=== PATIENT | female | born 1975 | race Hispanic/Latino ===

== ENCOUNTER → 2024-07-16 | Outpatient (CLI) | payer MEDICAID, SELFPAY ==
[2024-07-16 12:19] LABS: Absolute Lymphocyte Count 2.72 X10^3/uL (0.83-4.51); Absolute Neutrophil Count 7.5 X10^3/uL (2.0-7.7); Basophil# 0.08 X10^3/uL; Basophil% 0.7 % (0-1); Eosinophils% 3.6 % (0-5); Hematocrit 39.1 % (37-47); Hemoglobin 13.2 g/dL (12.0-15.0); Lymphocyte # 2.72 X10^3/ul (0.83-4.51); Lymphocyte % 24.2 % (19-41); Mean Corp Hgb Conc 33.8 g/dL (32-36); Mean Corpuscular Hgb 30.6 pg (27.0-32.0); Mean Corpuscular Volume 90.7 fL (81-99); Mean Platelet Vol. 10.7 fl (6.2-12.0); Monocyte# 0.48 X10^3/uL; Monocyte% 4.3 % (0-10); NRBC Flagged by Analyzer 0 % (0-5); Neutrophil # 7.51 X10^3/uL (2.7-7.7); Neutrophil % 66.8 % (47-70); Platelet Count 360 K/mm3 (150-450); RBC Distribution Width CV 14.1 % (11.6-14.6); RBC Distribution Width SD 45.4 fl (35.1-43.9); Red Blood Count 4.31 M/mm3 (4.2-5.4); White Blood Count 11.2 K/mm3 (4.4-11.0)
[2024-07-16 12:52] LABS: ALB/GLOB Ratio 0.8 RATIO (0.9-2.4); AST(SGOT) 16 U/L (15-37); Alanine Aminotransfer ALT/SGPT 26 U/L (13-56); Albumin, Serum 3.3 g/dL (3.2-5.0); Alkaline Phosphatase 114 U/L (45-117); Anion Gap 6 (5-15); BUN 7 mg/dL (7-18); BUN/Creat Ratio 9.7 RATIO (10-20); Calcium,Total 8.4 mg/dL (8.5-10.1); Chloride 105 mmol/L (98-107); Cholesterol 147 mg/dL (200); Creatinine, Serum 0.72 mg/dL (0.55-1.02); EST Glomerular Filtration Rate 91 mL/min (>60); Est Glom Filt Rate - Afr Amer 111 mL/min (>60); Globulin 3.9 g/dL (2.2-4.2); Glucose 122 mg/dL (74-106); High Density Lipoprotein 49 mg/dL; Potassium 3.6 mmol/L (3.5-5.1); Protein, Total 7.2 g/dL (6.4-8.2); Sodium Level 139 mmol/L (136-145); Triglycerides 132 mg/dL; Very Low Density Lipoprotein 26 mg/dL (5-40)
[2024-07-17 10:25] LABS: Hemoglobin A1c 6.2 % (3.8-5.6)
== END | disposition home or self-care (01) ==
LOC: BIMLAB 10:09
PROVIDERS: PCP Internal Medicine; Referring Provider Internal Medicine; Visit Provider Internal Medicine
DX: Z00.00 Encounter for general adult medical examination without abnormal findings (principal); E83.51 Hypocalcemia; R73.9 Hyperglycemia, unspecified
CPT/HCPCS: 36415; 80053; 80061; 82306; 83036; 85025

== ENCOUNTER → 2024-07-29 | Outpatient (CLI) | payer MEDICAID, SELFPAY ==
--- NOTE | 2024-07-29 08:18 | BI_ITS ---
MAMMOGRAPHY - BILATERAL SCREENING REASON FOR EXAM: Female, 48 years old. Routine annual screening examination. PERTINENT HISTORY: Non-contributory. TECHNIQUE: Digital bilateral breast francisco (3D mammographic acquisition) in the CC and MLO projections. 2-D mediolateral oblique (MLO) and craniocaudad (CC) views of both breasts were obtained. CAD: Full Field Digital Mammography with Computer Added Detection was performed. COMPARISON: Comparison is made with prior study dated December 27, 2015. FINDINGS: Breast Composition: The breasts are almost entirely fatty. There are no dominant masses or suspicious calcifications. Stable bilateral benign-appearing axillary lymph nodes. No other significant abnormalities are identified. There has been no significant change since the prior study. BI/SCRN MAMM (CAD)W/FRANCISCO BILAT IMPRESSION: Stable bilateral screening mammogram. Yearly follow-up mammogram recommended. (A) ASSESSMENT CATEGORY: BIRADS Category 2: Benign. A letter regarding these results will be sent to the patient by the facility within 30 days. Approximately 10% of breast cancers are not detected by mammography. A normal mammogram should not delay biopsy of a clinically suspicious abnormality. [id number] Electronically Signed: Bill Vasquez MD at 11:44 EDT ,
--- OUTSIDE RECORDS SUMMARY | 2024-07-29 08:47 | XMS RPT_ITS | CCD ---
Author Organization [facility] Team Providers Care Dental Aide Name Role Phone BROOKS YANG DO Primary Care Physician [phone] MEGHAN PHAM MD Attending Unavailable BROOKS YANG DO Primary Care Unavailable BROOKS YANG DO Attending Unavailable BROOKS YANG DO Primary Care Unavailable MOUNIKA MARISCAL Attending UnavailBROOKS Carvajal DO Primary Care Unavailable BROOKS YANG DO Attending Unavailable BROOKS YANG DO Primary Care Unavailable Medications Current Medications Medication Drug Class(es) Dates Sig (Normalized) Sig (Original) cephalexin 500 mg oral capsule (1 source) Cephalosporin Antibacterial Start: 09-18-2022 End: 09-25-2022 cephalexin 500 mg oral capsule Dose : 500 mg = 1 cap(s), Oral, QID, X 7 day(s), # 28 cap(s), 0 Refill(s), 09/25/22 10:14:00 EST, Pharmacy: [facility], Cellulitis, 158, cm, 09/18/22 9:51:00 EST, Height, 115.4 Start Date: 09/18/22 Stop Date: 09/25/22 Status: Ordered predniSONE 10 mg oral tablet (1 source) Start: 02-27-2023 take 4 tablets by mouth once daily, then take 3 tablets by mouth once daily, then take 2 tablets by mouth once daily, then take 1 tablet by mouth once daily predniSONE 10 mg oral tablet See Instructions, Take 4 tabs p.o. daily x 3 days, then 3 tabs p.o. daily x 3 days, then 2 tabs p.o. daily x 3 days, then 1 tab p.o. daily x 3 days, # 30 tab(s), 0 Refill(s), Pharmacy: [facility], Lumbar back pain with radiculopathy affecti... Start Date: 02/27/23 Status: Ordered sulfamethoxazole 800 mg / trimethoprim 160 mg oral tablet (1 source) Dihydrofolate Reductase Inhibitor Antibacterial, Sulfonamide Antimicrobial Start: 09-20-2022 End: 09-27-2022 take 1 tablet by mouth twice daily Bactrim DS 800 mg-160 mg oral tablet Dose = 1 tab(s), Oral, BID, X 7 day(s), # 14 tab(s), 0 Refill(s), Pharmacy: [facility], 158, cm, 09/18/22 9:51:00 EST, Height, 115.4 Start Date: 09/20/22 Stop Date: 09/27/22 Status: Ordered 24 hr tolterodine tartrate 4 mg extended release oral capsule (3 sources) Cholinergic Muscarinic Antagonist Start: 08-23-2022 Detrol LA 4 mg oral capsule, extended release Dose : 4 mg = 1 cap(s), Oral, qDay, # 30 cap(s), 5 Refill(s), Pharmacy: [facility], Mixed stress and urge urinary incontinence, 159, cm, 08/23/22 9:07:00 EST, Height Start Date: 08/23/22 Status: Ordered Problems Problem Classification Problem Date Documented Da te Episodic/Chronic Diabetes mellitus without complication (5 sources) Prediabetes; Translations: [Prediabetes] 03-30-2020 Episodic Other inflammatory condition of skin (4 sources) Psoriasis 03-30-2020 Chronic Other nervous system disorders (4 sources) Paresthesia of finger 07-26-2022 Episodic Other nutritional; endocrine; and metabolic disorders (4 sources) Body mass index 40+ - severely obese 01-25-2022 Chronic Other nutritional; endocrine; and metabolic disorders (1 source) Morbid obesity; Translations: [Morbid (severe) obesity due to excess calories] Chronic Other skin disorders (4 sources) 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 Skin and subcutaneous tissue infections (1 source) Furuncle of groin 12-07-2022 Episodic Spondylosis; intervertebral disc disorders; other back problems (1 source) Low back pain 02-27-2023 Episodic Substance-related disorders (4 sources) Tobacco dependence caused by cigarettes 03-30-2021 Chronic Unclassified (4 sources) Patient encounter status 07-26-2022 Results Test Name Value Interpretation Reference Range Facility XR SPINE LUMBAR W/OBLIQUES 4 VIEWSon 03-03-2023 XR SPINE LUMBAR W/OBLIQUES 4 VIEWS ORIGINAL EXAMINATION: 5 XRAY VIEWS OF THE LUMBAR SPINE02/27/2023 11:46 am LUMBAR SPINE W/ OBLIQUES COMPARISON: None HISTORY: ORDERING SYSTEM PROVIDED HISTORY: Reason for Exam: Low back pain with radiation to both lower extremities; no history of trauma FINDINGS: There are likely rudimentary ribs at T12. Chronic corticated defects seen in the left transverse rudimentary ribs. No pars defects visible. Lumbar vertebral body heights are normal. Mild marginal disc osteophytes seen in the lumbar spine. There is mild loss of disc height at L3-4 and L4-5. Facet arthropathy is most prevalent in the lower lumbar spine. Surgical clips noted in the right upper quadrant and there salpingostomy clips in the pelvis. IMPRESSION: Mild degenerative changes. No compression deformities Interpreted by: Juan Cárdenas MD Preliminary Report By: Juan Cárdenas MD Electronically signed By Juan Cárdenas MD Dictated Date: 03/03/2023 8:23:52 AM Prelim Date: 03/03/2023 8:26:39 AM Sign Date: 03/03/2023 8:26:39 AM Ordering Provider: BROOKS Mendoza [facility] ([place]) .Auto Diffon 08-23-2022 Basophil, Absolute 0.1 10 3/mcL Normal 0.0-0.2 [facility]) Comment on above: Performed By: #### A 1C, TSH, GFR, CMP, LIPID #### [address] [address] Basophils/100 WBC (Bld) 0.8 % Normal 0.0-2.5 [facility] ([place]) Comment on above: Performed By: #### A 1C, TSH, GFR, CMP, LIPID #### [address] [address] Eosinophil, Absolute 0.3 10 3/mcL Normal 0.0-0.4 [facility] ([place]) Comment on above: Performed By: #### A 1C, TSH, GFR, CMP, LIPID #### Jeb [address] [address] Eosinophils/100 WBC (Bld) 2.7 % Normal 0.0-7.0 [facility] ([place]) Comment on above: Performed By: #### A 1C, TSH, GFR, CMP, LIPID #### [address] [address] Lymphocyte, Absolute 2.4 10 3/mcL Normal 0.8-3.9 [facility] ([place]) Comment on above: Performed By: #### A 1C, TSH, GFR, CMP, LIPID #### [address] [address] Lymphocytes/100 WBC (Bld) 19.4 % Normal 10.0-50.0 [facility] ([place]) Comment on above: Performed By: #### A 1C, TSH, GFR, CMP, LIPID #### [address] [address] Monocyte, Absolute 0.5 10 3/mcL Normal 0.2-1.0 [facility] ([place]) Comment on above: Performed By: #### A 1C, TSH, GFR, CMP, LIPID #### [address] [address] Monocytes/100 WBC (Bld) 4.4 % Normal 1.7-13.0 [facility] ([place]) Comment on above: Performed By: #### A 1C, TSH, GFR, CMP, LIPID #### [address] [address] Neutrophils/100 WBC (Bld) 72.7 % Normal 37.0-80.0 [facility] ([place]) Comment on above: Performed By: #### A 1C, TSH, GFR, CMP, LIPID #### [address] [address] .GFRon 08-23-2022 GFR 102 ml/min/1.73sqm Normal [facility] ([place]) Comment on above: Result Comment: GFR Population mean for , Non- Americans Ages 20-29 = 116 mL/min/1.73 sq.m. Ages 30-39 = 107 mL/min/1.73 sq.m. Ages 40-49 = 99 mL/min/1.73 sq.m. Ages 50-59 = 93 mL/min/1.73 sq.m. Ages 60-69 = 85 mL/min/1.73 sq.m. Ages 70+ = 75 mL/min/1.73 sq.m. Chronic Kidney Disease: Less than 60 mL/min/1.73 square meters End Stage Renal Disease: Less than 15 mL/min/1.73 square meters Performed By: #### A 1C, TSH, GFR, CMP, LIPID #### [address] [address] GFR Non- 84 ml/min/1.73sqm Normal [facility] ([place]) Comment on above: Result Comment: GFR Population mean for , Non- Americans Ages 20-29 = 116 mL/min/1.73 sq.m. Ages 30-39 = 107 mL/min/1.73 sq.m. Ages 40-49 = 99 mL/min/1.73 sq.m. Ages 50-59 = 93 mL/min/1.73 sq.m. Ages 60-69 = 85 mL/min/1.73 sq.m. Ages 70+ = 75 mL/min/1.73 sq.m. Chronic Kidney Disease: Less than 60 mL/min/1.73 square meters End Stage Renal Disease: Less than 15 mL/min/1.73 square meters Performed By: #### A 1C, TSH, GFR, CMP, LIPID #### [address] [address] .NEUABSon 08-23-2022 Neutrophil, Absolute 9.0 10 3/mcL High 2.9-6.2 [facility] ([place]) Comment on above: Performed By: #### A 1C, TSH, GFR, CMP, LIPID #### [address] [address] A1Con 08-23-2022 HbA1c (Bld) [Mass fraction] 6.2 % Normal 4.3-6.4 [facility] ([place]) Comment on above: Performed By: #### F SH, LH #### [address], [place] [address] [facility] Erythrocyte distribution width (RBC) [Ratio] 14.7 % High 11.5-14.5 [facility] ([place]) Comment on above: Performed By: #### A 1C, TSH, GFR, CMP, LIPID #### [address] [address] Hematocrit (Bld) [Volume fraction] 40.0 % Normal 37.0-47.0 [facility] ([place]) Comment on above: Performed By: #### A 1C, TSH, GFR, CMP, LIPID #### [address] [address] Hgb 13.5 G/dL Normal 12.0-16.0 [facility] ([place]) Comment on above: Performed By: #### A 1C, TSH, GFR, CMP, LIPID #### [address] [address] MCH (RBC) [Entitic mass] 29.4 pg Normal 27.0-31.2 [facility] ([place]) Comment on above: Performed By: #### A 1C, TSH, GFR, CMP, LIPID #### [address] [address] MCHC 33.8 G/dL Normal 33.0-37.0 [facility] ([place]) Comment on above: Performed By: #### A 1C, TSH, GFR, CMP, LIPID #### [address] [address] MCV (RBC) [Entitic vol] 87.1 fL Normal 80.0-94.0 [facility] ([place]) Comment on above: Performed By: #### A 1C, TSH, GFR, CMP, LIPID #### [address] [address] Platelet 361 10 3/mcL Normal 130-400 [facility] ([place]) Comment on above: Performed By: #### A 1C, TSH, GFR, CMP, LIPID #### [address] [address] Platelet mean volume (Bld) [Entitic vol] 8.3 fL Normal 7.4-10.4 [facility] ([place]) Comment on above: Performed By: #### A 1C, TSH, GFR, CMP, LIPID #### [address] [address] RBC 4.59 10 6/mcL Normal 4.20-5.40 [facility] ([place]) Comment on above: Performed By: #### A 1C, TSH, GFR, CMP, LIPID #### [address] [address] WBC 12.4 10 3/mcL High 4.6-10.8 [facility] ([place]) Comment on above: Performed By: #### A 1C, TSH, GFR, CMP, LIPID #### [address] [address] CMPon 08-23-2022 Albumin Level 3.5 G/dL Normal 3.5-5.0 [facility] ([place]) Comment on above: Performed By: #### A 1C, TSH, GFR, CMP, LIPID #### [address] [address] Albumin/Globulin [Mass ratio] 1.0 {ratio} Low 1.1-2.5 [facility] ([place]) Comment on above: Performed By: #### A 1C, TSH, GFR, CMP, LIPID #### [address] [address] ALP [Catalytic activity/Vol] 118 U/L Normal 40-135 [facility] ([place]) Comment on above: Performed By: #### A 1C, TSH, GFR, CMP, LIPID #### [address] [address] ALT [Catalytic activity/Vol] 26 U/L Normal 14-59 [facility] ([place]) Comment on above: Performed By: #### A 1C, TSH, GFR, CMP, LIPID #### [address] [address] AST [Catalytic activity/Vol] 16 U/L Normal 10-40 [facility] ([place]) Comment on above: Performed By: #### A 1C, TSH, GFR, CMP, LIPID #### [address] [address] Bili Total 0.5 mg/dL Normal 0.2-1.0 [facility] ([place]) Comment on above: Result Comment: Use of this assay is not recommended for patients undergoing treatment with eltrombopag due to the potential for falsely elevated results. Performed By: #### A 1C, TSH, GFR, CMP, LIPID #### [address] [address] BUN/Creatinine Ratio 12 ratio Normal 7-27 [facility] ([place]) Comment on above: Performed By: #### A 1C, TSH, GFR, CMP, LIPID #### [address] [address] Calcium [Mass/Vol] 8.8 mg/dL Normal 8.4-10.2 [facility] ([place]) Comment on above: Performed By: #### A 1C, TSH, GFR, CMP, LIPID #### [address] [address] Chloride [Moles/Vol] 103 mmol/L Normal 98-107 [facility] ([place]) Comment on above: Performed By: #### A 1C, TSH, GFR, CMP, LIPID #### [address] [address] CO2 [Moles/Vol] 30 mmol/L High 22-29 [facility] ([place]) Comment on above: Performed By: #### A 1C, TSH, GFR, CMP, LIPID #### [address] [address] Creatinine [Mass/Vol] 0.74 mg/dL Normal 0.55-1.02 [facility] ([place]) Comment on above: Performed By: #### A 1C, TSH, GFR, CMP, LIPID #### [address] [address] Electrolyte Balance 9.0 mEq/L Normal 4.0-15.0 [facility] ([place]) Comment on above: Performed By: #### A 1C, TSH, GFR, CMP, LIPID #### [address] [address] Globulin 3.6 G/dL Normal [facility] ([place]) Comment on above: Performed By: #### A 1C, TSH, GFR, CMP, LIPID #### [address] [address] Glucose [Mass/Vol] 138 mg/dL High 70-105 [facility] ([place]) Comment on above: Performed By: #### A 1C, TSH, GFR, CMP, LIPID #### [address] [address] Potassium [Moles/Vol] 3.5 mmol/L Normal 3.5-5.1 [facility] ([place]) Comment on above: Performed By: #### A 1C, TSH, GFR, CMP, LIPID #### [address] [address] Sodium [Moles/Vol] 142 mmol/L Normal 136-145 [facility] ([place]) Comment on above: Performed By: #### A 1C, TSH, GFR, CMP, LIPID #### [address] [address] Total Protein 7.1 G/dL Normal 6.4-8.2 [facility] ([place]) Comment on above: Performed By: #### A 1C, TSH, GFR, CMP, LIPID #### [address] [address] Urea nitrogen [Mass/Vol] 9 mg/dL Normal 7-18 [facility] ([place]) Comment on above: Performed By: #### A 1C, TSH, GFR, CMP, LIPID #### [address] [address] FSHon 08-23-2022 FSH 40.9 mIU/mL Normal [facility] ([place]) Comment on above: Result Comment: Adul t Female FSH Reference Ranges (08/24/99): Follicular phase 2.5 - 10.2 mIU/mL Midcycle phase 3.4 - 33.4 mIU/mL Luteal phase 1.5 - 9.1 mIU/mL Post menopausal 23.0 -116.3 mIU/mL Adult Male: 1.4 - 18.1 mIU/mL Performed By: #### F , #### [place] [address] LABORATORYOrdered By: SYSTEM SYSTEM on 08-23-2022 Follitropin Qn 40.9 m[IU]/mL Invalid Interpretation Code AH ADM SS Lutropin Qn 20.5 m[IU]/mL Invalid Interpretation Code AH ADM SS GFR 102 ml/min/1.73sqm Invalid Interpretation Code AO Chemistry S GFR Non- 84 ml/min/1.73sqm Invalid Interpretation Code AO Chemistry S LABORATORYOrdered By: Jordan Sandy on 08-23-2022 Albumin BCP dye [Mass/Vol] 3.5 G/dL Invalid Interpretation Code 3.5 - 5.0 G/dL AO ADM SS Albumin/Globulin [Mass ratio] 1.0 {ratio} Invalid Interpretation Code 1.1 - 2.5 ratio AO ADM SS ALP [Catalytic activity/Vol] 118 U/L Invalid Interpretation Code 40 - 135 U/L AO ADM SS ALT With P-5'-P [Catalytic activity/Vol] 26 U/L Invalid Interpretation Code 14 - 59 U/L AO ADM SS AST With P-5'-P [Catalytic activity/Vol] 16 U/L Invalid Interpretation Code 10 - 40 U/L AO ADM SS Bilirubin [Mass/Vol] 0.5 mg/dL Invalid Interpretation Code 0.2 - 1.0 mg/dL AO ADM SS Calcium [Mass/Vol] 8.8 mg/dL Invalid Interpretation Code 8.4 - 10.2 mg/dL AO ADM SS Chloride [Moles/Vol] 103 mmol/L Invalid Interpretation Code 98 - 107 mmol/L AO ADM SS Cholesterol [Mass/Vol] 187 mg/dL Invalid Interpretation Code 0 - 200 mg/dL AO ADM SS Cholesterol in HDL [Mass/Vol] 48 mg/dL Invalid Interpretation Code 40 - 60 mg/dL AO ADM SS Cholesterol in LDL [Mass/Vol] 106 mg/dL Invalid Interpretation Code 0 - 130 mg/dL AO ADM SS CO2 [Moles/Vol] 30 mmol/L Invalid Interpretation Code 22 - 29 mmol/L AO ADM SS Creatinine [Mass/Vol] 0.74 mg/dL Invalid Interpretation Code 0.55 - 1.02 mg/dL AO ADM SS Electrolyte Balance 9.0 mEq/L Invalid Interpretation Code 4.0 - 15.0 mEq/L AO ADM SS Globulin 3.6 G/dL Invalid Interpretation Code AO ADM SS Glucose [Mass/Vol] 138 mg/dL Invalid Interpretation Code 70 - 105 mg/dL AO ADM SS Potassium [Moles/Vol] 3.5 mmol/L Invalid Interpretation Code 3.5 - 5.1 mmol/L AO ADM SS Protein [Mass/Vol] 7.1 G/dL Invalid Interpretation Code 6.4 - 8.2 G/dL AO ADM SS Sodium [Moles/Vol] 142 mmol/L Invalid Interpretation Code 136 - 145 mmol/L AO ADM SS Triglyceride [Mass/Vol] 167 mg/dL Invalid Interpretation Code 0 - 150 mg/dL AO ADM SS TSH Qn 1.98 m[IU]/L Invalid Interpretation Code 0.36 - 3.74 mcIU/mL AO ADM SS Urea nitrogen [Mass/Vol] 9 mg/dL Invalid Interpretation Code 7 - 18 mg/dL AO ADM SS Urea nitrogen/Creatinine [Mass ratio] 12 ratio Invalid Interpretation Code 7 - 27 ratio AO ADM SS LABORATORYOrdered By: Jones Trammell on 08-23-2022 Basophil, Absolute 0.1 103/mcL Invalid Interpretation Code 0.0 - 0.2 10^3/mcL AO Workflow SS Basophils/100 WBC (Bld) 0.8 % Invalid Interpretation Code 0.0 - 2.5 % AO Workflow SS Eosinophil, Absolute 0.3 103/mcL Invalid Interpretation Code 0.0 - 0.4 10^3/mcL AO Workflow SS Eosinophils/100 WBC (Bld) 2.7 % Invalid Interpretation Code 0.0 - 7.0 % AO Workflow SS Erythrocyte distribution width (RBC) [Ratio] 14.7 % Invalid Interpretation Code 11.5 - 14.5 % AO Workflow SS HbA1c (Bld) [Mass fraction] 6.2 % Invalid Interpretation Code 4.3 - 6.4 % AO ADM SS Hematocrit (Bld) [Volume fraction] 40.0 % Invalid Interpretation Code 37.0 - 47.0 % AO Workflow SS Hemoglobin (Bld) [Mass/Vol] 13.5 G/dL Invalid Interpretation Code 12.0 - 16.0 G/dL AO Workflow SS Lymphocyte, Absolute 2.4 103/mcL Invalid Interpretation Code 0.8 - 3.9 10^3/mcL AO Workflow SS Lymphocytes/100 WBC (Bld) 19.4 % Invalid Interpretation Code 10.0 - 50.0 % AO Workflow SS MCH (RBC) [Entitic mass] 29.4 pg Invalid Interpretation Code 27.0 - 31.2 pg AO Workflow SS MCHC 33.8 G/dL Invalid Interpretation Code 33.0 - 37.0 G/dL AO Workflow SS MCV (RBC) [Entitic vol] 87.1 fL Invalid Interpretation Code 80.0 - 94.0 fL AO Workflow SS Monocyte, Absolute 0.5 103/mcL Invalid Interpretation Code 0.2 - 1.0 10^3/mcL AO Workflow SS Monocytes/100 WBC (Bld) 4.4 % Invalid Interpretation Code 1.7 - 13.0 % AO Workflow SS Neutrophil, Absolute 9.0 103/mcL Invalid Interpretation Code 2.9 - 6.2 10^3/mcL AO Workflow SS Neutrophils/100 WBC (Bld) 72.7 % Invalid Interpretation Code 37.0 - 80.0 % AO Workflow SS Platelet mean volume (Bld) [Entitic vol] 8.3 fL Invalid Interpretation Code 7.4 - 10.4 fL AO Workflow SS Platelets (Bld) [#/Vol] 361 103/mcL Invalid Interpretation Code 130 - 400 10^3/mcL AO Workflow SS RBC (Bld) [#/Vol] 4.59 106/mcL Invalid Interpretation Code 4.20 - 5.40 10^6/mcL AO Workflow SS WBC (Bld) [#/Vol] 12.4 103/mcL Invalid Interpretation Code 4.6 - 10.8 10^3/mcL AO Workflow SS LHon 08-23-2022 LH 20.5 mIU/mL Normal [facility] ([place]) Comment on above: Result Comment: No te - New Reference Range in effect 20 Adult Female LH Reference Ranges: Follicular phase 1.9 - 12.5 mIU/mL Midcycle phase 8.7 - 76.3 mIU/mL Luteal phase 0.5 - 16.9 mIU/mL Post menopausal 5.0 - 55.2 mIU/mL Performed By: #### F , LH #### [facility] [address] [place], [place] [address] LIPIDon 08-23-2022 Cholesterol [Mass/Vol] 187 mg/dL Normal 0-200 [facility] ([place]) Comment on above: Result Comment: Chol esterol Reference Interval: Less than 200 Desirable 200-239 Borderline high risk 240 and above High risk Performed By: #### A 1C, TSH, GFR, CMP, LIPID #### [address] [address] Cholesterol in HDL [Mass/Vol] 48 mg/dL Normal 40-60 [facility] ([place]) Comment on above: Performed By: #### A 1C, TSH, GFR, CMP, LIPID #### [address] [address] Cholesterol in LDL [Mass/Vol] 106 mg/dL Normal 0-130 [facility] ([place]) Comment on above: Performed By: #### A 1C, TSH, GFR, CMP, LIPID #### [address] [address] Triglyceride [Mass/Vol] 167 mg/dL High 0-150 [facility] ([place]) Comment on above: Result Comment: Trig lyceride Reference Interval: Less than 150 Normal 150-199 Borderline high risk 200-499 High risk 500 or higher Very high risk Performed By: #### A 1C, TSH, GFR, CMP, LIPID #### [address] [address] TSHon 08-23-2022 TSH Qn 1.98 m[IU]/L Normal 0.36-3.74 [facility] ([place]) Comment on above: Performed By: #### A 1C, TSH, GFR, CMP, LIPID #### [address] [address] Encounters Encounter Date Encounter Type Care Provider Facility Start: 02-27-2023 End: 02-28-2023 ambulatory BROOKS YANG DO Facility:B Start: 02-27-2023 End: 02-27-2023 Patient encounter procedure BROOKS YANG DO [facility] Start: 09-20-2022 End: 09-21-2022 ambulatory MOUNIKA CERVANTES [employer]UC[employer] MA[employer] IN NURSING Facility:B Start: 09-20-2022 End: 09-20-2022 Patient encounter procedure MOUNIKA DELANEY [facility] Start: 08-23-2022 End: 08-24-2022 ambulatory BROOKS YANG DO Facility:B Start: 08-23-2022 End: 08-23-2022 Well adult monitoring check done BROOKS YANG DO [facility] Start: 08-23-2022 End: 08-23-2022 Patient encounter procedure MEGHAN PHAM MD [facility] Procedures Date Procedure Procedure Detail Performing Clinician Cholecystectomy MEGHAN PHAM MD Comment on above: 1995 Ligation of fallopian tube A LARISSA PHAM MD Immunizations Immunization Date Immunization Notes Care Provider [facility] 10-01-2011 influenza virus vaccine, unspecified formulation MEGHAN PHAM MD [facility] Payers Date Payer Category Payer Unknown [id number] 1975 Unknown [id number] [id number] [id number] 1975 Unknown [id number] [id number] [id number] 1975 Unknown [id number] [id number] [id number] 1975 Unknown [id number] [id number] Social History Date Type Detail Facility Start: 08-23-2022 Tobacco smoking status Light t obacco smoker (finding) [facility] Sex Assigned At Female [facility] Evaluation + Plan note Radiology Note Date & Type Note Facility Evaluation + Plan note Future Appointments Appointment Date:01/24/2023 10:30:00 AM Scheduled Provider:BROOKS YANG DO Location:[facility] Appointment Type:PC OV Future Scheduled TestsMA Mammo Screening Bilateral w/ Hipolito 08/23/22 [facility] Evaluation + Plan note Radiology Note Date & Type Note Facility Evaluation + Plan note Future Appointments Appointment Date:04/24/2023 01:30:00 PM Scheduled Provider:BROOKS YANG DO Location:[facility] Appointment Type:PC OV Appointment Date:07/25/2023 10:30:00 AM Scheduled Provider:BROOKS YANG DO Location:[facility] Appointment Type:PC OV Follow Up Future Scheduled TestsMA Mammo Screening Bilateral w/ Hipolito 08/23/22 [facility] Hospital course Narrative Note Date & Type Note Facility Hospital course Narrative No data available for this section [facility] Hospital Discharge instructions Note Date & Type Note Facility Hospital Discharge instructions No data available for this section [facility] Note Note Date & Type Note Facility Note CLARA FLAHERTY MD: SIGN, VERIFY Event Display: VL Venous US/Doppler One Leg (DVT) AOH [facility] Progress note Note Date & Type Note Facility Progress note No data available for this section [facility] Summary Purpose Family History No Family History Records Found Advance Directives No Advanced Directives Records Found Additional Source Comments Care Team (unrecognized sect ion and content) Care Team Personnel Name: BROOKS YANG DO Position: P4 Physician - Primary Care Member Role: Primary Care Physician Address: Address: [address] [place] [id number] [place] Care Team Related Persons Name: LITTLE HOLLINS Care Team Personnel Name: BROOKS YANG DO Position: P4 Physician - Primary Care Member Role: Primary Care Physician Address: Address: [address] [place] [id number] [place] [address] Care Team Related Persons Name: LITTLE HOLLINS Patient Care team informatio n (unrecognized section and content) Care Team Personnel Name: BROOKS YANG Position: P4 Physician - Primary Care Member Role: Primary Care Physician Address: Address: [address] [place] [id number] [place] Care Team Related Persons Name: LITTLE HOLLINS INFORMATION SOURCE (unrecogn ized section and content) DATE CREATED AUTHOR 03/10/2023 [facility]ation ([place]) FOR RECORDS PERTAINING TO PATIENTS WHO ARE OR HAVE BEEN ENROLLED IN A CHEMICAL DEPENDENCY/SUBSTANCEABUSE PROGRAM, SOME INFORMATION MAY BE OMITTED. This clinical summary was aggregated from multiple sources. Caution should be exercised in using it in the provision of clinical care. This summary normalizes information from multiple sources, and as a consequence, information in this document may materially change the coding, format and clinical context of patient data. In addition, data may be omitted in some cases. CLINICAL DECISIONS SHOULD BE BASED ON THE PRIMARY CLINICAL RECORDS. [employer] [facility]. provides no warranty or guarantee of the accuracy or completeness of information in this document.
== END | disposition home or self-care (01) ==
LOC: OPBI 08:18
PROVIDERS: PCP Internal Medicine; Referring Provider Internal Medicine; Visit Provider Internal Medicine
DX: Z12.31 Encounter for screening mammogram for malignant neoplasm of breast (principal)
CPT/HCPCS: 77063; 77067

== ENCOUNTER 2024-09-18 05:21 | Day surgery (SDC) | payer MEDICAID, SELFPAY ==
[2024-09-18] VITALS (7 sets, daily range): BP systolic 86–129; BP diastolic 59–75; PULSE 71–76; RESP 16–18; TEMP 36.2–37; O2SAT 95–99; BMI 43.3
--- NOTE | 2024-09-18 06:11 | PCM.PRE.AN2 ---
ASA Classification* ASA Classification ASA Classification: 3 Assessment & Plan Anesthesia* Anesthesia Assessment Anesthesia Assessment: Discussed sedation and/or anesthesia options, risks, benefits, and alternatives with patient/parents/legal guardian/POA. Questions invited. The patient/parents/legal guardian/POA seems to understand and agrees to proceed with anesthesia plan. Reviewed the physical assessment, medical history, allergy history and patient home medications list prior to surgery/procedure/anesthetic and documented any changes. Performed airway and anesthesia risk assessments. Anesthesia Type Anesthesia Type: MAC History Source History Obtained from:: Patient and Chart Anesthesia Focused Assessment* Temperature: 98.6 F Pulse Rate: 71 Blood Pressure: 129/75 Respiratory Rate: 16 Pulse Ox: 99 Oxygen Delivery Method: Room Air Airway Assessment Mouth opens: >3 cm Mallampati Score: IV Teeth Condition: Intact Neck Range of motion (ROM): Full ROM Focused Labs Anesthesia Preop lab: CBC WBC 11.2 K/mm3 (4.4-11.0) H 07/16/24 10:09 RBC 4.31 M/mm3 (4.2-5.4) 07/16/24 10:09 Hgb 13.2 g/dL (12.0-15.0) 07/16/24 10:09 Hct 39.1 % (37-47) 07/16/24 10:09 Plt Count 360 K/mm3 (150-450) 07/16/24 10:09 CHEMISTRY Potassium 3.6 mmol/L (3.5-5.1) 07/16/24 10:09 Sodium 139 mmol/L (136-145) 07/16/24 10:09 BUN 7 mg/dL (7-18) 07/16/24 10:09 Creatinine 0.72 mg/dL (0.55-1.02) 07/16/24 10:09 Glucose 122 mg/dL (74-106) H 07/16/24 10:09 COAG Pre-Assessment Diagnosis/Proposed Procedure Planned Operative Procedure(s): COLONOSCOPY Anesthesia History Anesthesia History - educational resource coordinator: Anesthesia History - educational resource coordinator Hx Hospitalization No 09/16/24 15:45 Any Problems With Anesthesia No 09/16/24 15:45 Cholinesterase deficiency No 09/16/24 15:45 You/Your Family Experience No 09/16/24 15:45 fever (hyperthermia) with Relationship Recent Exposure to Contagious No 09/18/24 05:52 Disease Does patient have nerve No 09/16/24 15:45 stimulator Patient instructed to have device shut off --Does patient have Pacemaker No 09/18/24 05:52 or ICD? When Was Last Pacemaker Check QUESTION #4 FULL TEXT: You/Your Family Experience fever (hyperthermia) with Anesthesia Last Oral Intake Last Oral intake: Last Oral Intake NPO since Meds taken in AM with sips of water? Meds patient instructed to take am of surgery Any additional information?: Yes NPO since: 00:00 PONV PONV - educational resource coordinator: PONV - educational resource coordinator Female Yes 09/16/24 15:45 HX of Motion Sickness No 09/16/24 15:45 HX of N/V After Surgery No 09/16/24 15:45 Non-Smoker No 09/16/24 15:45 Duration of Surgery greater No 09/16/24 15:45 than 60 minutes Number of Risk Factors 1 09/16/24 15:45 PONV Score Low Risk 09/16/24 15:45 Height & Weight Height & Weight: Anesthesia: Height & Weight Height 5 ft 2 in 09/18/24 05:52 Weight: 107.5 kg 09/18/24 05:52 Body Mass Index (BMI) 43.3 09/18/24 05:52 Respiratory Assessment Respiratory Assessment - educational resource coordinator: Respiratory Tract Infection Hx - educational resource coordinator Hx Respiratory Tract Infection No 09/16/24 15:45 STOP Sleep Apnea STOP Sleep Apnea - educational resource coordinator: STOP Sleep Apnea - educational resource coordinator Hx Hypertension No 09/16/24 15:45 Hx Sleep Apnea No 09/16/24 15:45 CPAP BIPAP Do you snore loudly (louder No 09/16/24 15:45 than talking or can be heard Do you often feel tired/ No 09/16/24 15:45 fatigued/ sleepy during daytime? Has anyone observed you stop No 09/16/24 15:45 breathing during sleep? STOP Results Negative 09/16/24 15:45 QUESTION #5 FULL TEXT : Do you snore loudly (louder than talking or can be heard through closed doors)? Tobacco Use History Tobacco Use History - educational resource coordinator: Tobacco Use History - educational resource coordinator Tobacco Use Smoking Status Current every day smoker 09/16/24 15:45 Hx Tobacco Use Yes 09/16/24 15:45 Years Smoking Packs Smoked per Day Smoking Cessation Date was within the last 15 years Hx Smoking Cessation Date Hx Smoking Cessation Counseling Hematologic Medial History Hematologic Hx - educational resource coordinator: Hematologic Medical Hx - plumber helper Hx of Blood Transfusion No 09/16/24 15:45 Hx of Transfusion in last 3 No 09/16/24 15:45 Months Date of Last Transfusion (if within last 3 months) Ever experience any problems No 09/16/24 15:45 with transfusion(s)? Specify any problems Hx of Preganancy in last 3 No 09/16/24 15:45 Months Nurse Filling Out Transfusion [email or web address] 09/16/24 15:45 & Questions: Date: 09/16/24 09/16/24 15:45 Time: 15:47 09/16/24 15:45 Patient unable to answer at this time (ie. confused, unrespo /Reproduction History /Reproductive History - educational resource coordinator: /Reproductive Hx- educational resource coordinator Hx Now Gestational Age (in weeks): EDC: Hx Hx Para Hx Section SAB PFSH Medical History Heartburn Cardiology follow-up encounter Borderline type 2 diabetes mellitus Blood glucose elevated Hypocalcemia Ulnar nerve entrapments Carpal tunnel syndrome on both sides Colon cancer screening Preventative health care Heart murmur Carpal tunnel syndrome COVID-19 Encounter for screening for COVID-19 Home Medications ?Medication ?Instructions ?Recorded ?Last Taken ?Type NK 09/16/24 Unknown History Allergy/AdvReac Type Severity Reaction Status Date / Time No Known Allergies Allergy Verified 09/18/24 05:50 Family History Mother Asthma Hypertension Father Arthritis Parkinsons Grandmother Hyperlipemia Diabetes Sister [place] syndrome Surgical History Hx laparoscopic cholecystectomy H/O tubal ligation History of cholecystectomy Social History adopted: No household members: family number of children: 3 current occupational status: unemployed pets and animals: Yes pets and animals: cat(s) and dog(s) sexually active: Yes Smoking Status: Current every day smoker tobacco type: e-cigarettes Tobacco: How many years used: 5 alcohol intake: current alcohol intake frequency: holidays/special occasions only substance use type: does not use caffeine: Yes (3-4) Type: carbonated beverages what type of physical activity do you participate in: none frequency: 1-2 times per week do you feel safe at home: Yes Review of Systems (Anesthesia) ROS Narrative System reviewed and no additional complaints, except as documented.
--- NOTE | 2024-09-18 06:30 | COLBX_PTH ---
PATIENT: DENIZ HOLLINS LOC: EN U#:[id number] AGE/SX: 48/F ROOM: RE09/18/[address]: Dr. Humberto Muse DO : 1975 BED: DIS: 09/18/2024 SPEC #: [id number] RECD: 09/18/24 08:55 STATUS: GASTON CHAVEZ #: [id number] SUKHDEV: 09/18/24 06:[address]: Humberto Muse DEPT: SURGICAL PATHOLOGY RECD BY: Heydi Bejarano ENTERED: 09/18/24 10:48 SP TYPE: COLON BX OTHR DR: Dr. Eligio Carroll MD Tissues: A - Cecum, NOS B - Sigmoid colon biopsy Procedures: Surgery Specimen Level IV HEADER OPERATION: Colonoscopy, polypectomy, hemostasis PRE-OP DIAGNOSIS: Colon cancer screening TISSUE SUBMITTED: A- Cecum polyp, B- Sigmoid polyp MICROSCOPIC DIAGNOSIS A. Cecal polyp, biopsy: Fragments of tubular adenoma. B. Sigmoid colon polyp, biopsy: Fragments of tubular adenoma. AM. 09/19/2024 MICROSCOPIC DESCRIPTION Slides are reviewed. GROSS DESCRIPTION A. Received in fixative is one container labeled with the patient's name and designated Cecum polyp. The specimen consists of a vásquez-pink polyp measuring 1.5 x 1.0 x 1.0cm. The presumed base is inked. Also present in the container are multiple fragments of vásquez soft tissue measuring in aggregate 1.5 x 0.5 x 0.1cm. The polyp is serially sectioned and submitted entirely in one cassette. B. Received in fixative is one container labeled with the patient's name and designated Sigmoid polyp. The specimen consists of multiple irregular fragments of vásquez-pink polypoid tissue. The largest fragment measures 0.6 x 0.5 x 0.5 cm. This fragment is bisected. The smaller fragment measures in aggregate 0.5 x 0.5 x 0.2cm. The specimen is totally submitted in one cassette. 09/18/2024 TC:5 CPT:42161y3
--- NOTE | 2024-09-18 06:40 | PCM.HP.STD ---
[facility] - General General Date of Admission: 09/18/24 Date of Service: 09/18/24 Chief Complaint: Screening colonoscopy HPI Narrative DENIZ HOLLINS, is a 48 F who presents for screening colonoscopy. She has never had a colonoscopy in the past. She denies any abdominal pain. She does have type 2 diabetes which is controlled medicine. COUNT INCLUDES THE [facility] Medical History Heartburn Cardiology follow-up encounter Borderline type 2 diabetes mellitus Blood glucose elevated Hypocalcemia Ulnar nerve entrapments Carpal tunnel syndrome on both sides Colon cancer screening Preventative health care Heart murmur Carpal tunnel syndrome COVID-19 Encounter for screening for COVID-19 Home Medications ?Medication ?Instructions ?Recorded ?Last Taken ?Type NK 09/16/24 Unknown History Allergy/AdvReac Type Severity Reaction Status Date / Time No Known Allergies Allergy Verified 09/18/24 05:50 Family History Mother Asthma Hypertension Father Arthritis Parkinsons Grandmother Hyperlipemia Diabetes Sister [place] syndrome Surgical History Hx laparoscopic cholecystectomy H/O tubal ligation History of cholecystectomy Social History adopted: No household members: family number of children: 3 current occupational status: unemployed pets and animals: Yes pets and animals: cat(s) and dog(s) sexually active: Yes Smoking Status: Current every day smoker tobacco type: e-cigarettes Tobacco: How many years used: 5 alcohol intake: current alcohol intake frequency: holidays/special occasions only substance use type: does not use caffeine: Yes (3-4) Type: carbonated beverages what type of physical activity do you participate in: none frequency: 1-2 times per week do you feel safe at home: Yes ROS Constitutional Constitutional: Denies fatigue, fever(s), poor appetite, weight gain or weight loss Gastrointestinal Gastrointestinal: Denies belching, bloating, change in bowel habits, change in stool character, chewing difficulty, coffee ground emesis, constipation, cramping, diarrhea, dyspepsia, dysphagia, early satiety, excessive flatus, fecal incontinence, heartburn, hematemesis, hematochezia, hemorrhoids, loose stools, melena, nausea, odynophagia, rectal bleeding, tenesmus, vomiting or weight changes Vital Signs Vital Signs Vital Signs: 09/18/24 05:52 09/18/24 05:52 09/18/24 06:15 Temperature 98.6 F 98.6 F Temperature Source Temporal Pulse Rate 71 71 Respiratory Rate 16 16 Respiratory Pattern Normal Blood Pressure 129/75 H 129/75 H Blood Pressure Mean 93 Blood Pressure Source Monitor Blood Pressure Position Semi-Fowlers Blood Pressure Location Left Arm Pulse Ox 99 99 Oxygen Delivery Method Room Air Room Air Weight Weight: 236 lb 15.951 oz Body Mass Index (BMI) 43.3 Physical Exam Const alert, oriented x3, no apparent distress and healthy appearing General Appearance: cooperative GI normal to inspection, nondistended, normoactive bowel sounds, soft to palpation, non-tender and non-distended Percussion: normal to percussion Rectal Exam: deferred Assessment & Plan Assessment/Plan (1) Colon cancer screening: PLAN: She will undergo screening colonoscopy. She was explained alternatives, risk, benefits include not withstanding bleeding, infection, sepsis, perforation, need for emergent surgery and . She will have an ASA of 3.
--- NOTE | 2024-09-18 07:20 | OP.COLON_ITS ---
Patient Name: Layla Jacobo Procedure Date: 09/18/2024 6:18 AM Date of : 1975 Age: 48 Procedure: Colonoscopy Indications: Screening for colorectal malignant neoplasm Providers: Humberto Muse DO Referring MD: Eligio Carroll MD Medicines: Monitored Anesthesia Care Patient Profile: This is a 48 year old female. Refer to note in patient chart for documentation of history and physical. Last Colonoscopy: none. The patient's first colonoscopy is today. Complications: No immediate complications. Procedure: Pre-Anesthesia Assessment: - Prior to the procedure, a History and Physical was performed, and patient medications and allergies were reviewed. The patient is competent. The risks and benefits of the procedure and the sedation options and risks were discussed with the patient. All questions were answered and informed consent was obtained. Patient identification and proposed procedure were verified by the physician in the pre-procedure area. Mental Status Examination: alert and oriented. Airway Examination: normal oropharyngeal airway and neck mobility. Respiratory Examination: clear to auscultation. CV Examination: normal. Prophylactic Antibiotics: The patient does not require prophylactic antibiotics. Prior Anticoagulants: The patient has taken no anticoagulant or antiplatelet agents except for NSAID medication. ASA Grade Assessment: II - A patient with mild systemic disease. After reviewing the risks and benefits, the patient was deemed in satisfactory condition to undergo the procedure. The anesthesia plan was to use monitored anesthesia care (MAC). Immediately prior to administration of medications, the patient was re-assessed for adequacy to receive sedatives. The heart rate, respiratory rate, oxygen saturations, blood pressure, adequacy of pulmonary ventilation, and response to care were monitored throughout the procedure. The physical status of the patient was re-assessed after the procedure. After I obtained informed consent, the scope was passed under direct vision. Throughout the procedure, the patient's blood pressure, pulse, and oxygen saturations were monitored continuously. The Colonoscope was introduced through the anus and advanced to the cecum, identified by appendiceal orifice and ileocecal valve. The colonoscopy was performed with ease. The patient tolerated the procedure well. The quality of the bowel preparation was adequate. The ileocecal valve, appendiceal orifice, and rectum were photographed. Scope In: 6:55:58 AM Scope Withdrawal Time 0 hours 16 minutes 5 seconds Scope Out: 7:14:24 AM Total Procedure Duration Time 0 hours 18 minutes 26 seconds Findings: The perianal and digital rectal examinations were normal. Two sessile polyps were found in the sigmoid colon and ascending colon. The polyps were 1 to 2 mm in size. These polyps were removed with a hot snare. Resection and retrieval were complete. To close a defect after polypectomy, three hemostatic clips were successfully placed. Clip prosthodontist/educator: [employer]. There was no bleeding at the end of the procedure. Non-bleeding internal hemorrhoids were found during retroflexion. The hemorrhoids were Grade II (internal hemorrhoids that prolapse but reduce spontaneously). Impression: - Two 1 to 2 mm polyps in the sigmoid colon and in the ascending colon, removed with a hot snare. Resected and retrieved. Clips were placed. Clip prosthodontist/educator: [employer]. - Non-bleeding internal hemorrhoids. Recommendation: - Repeat colonoscopy in 1 year for surveillance. - Continue present medications. Procedure Code(s): --- Professional --- 35123, Colonoscopy, flexible; with removal of tumor(s), polyp(s), or other lesion(s) by snare technique CPT copyright 2021 [employer]. All rights reserved. The codes documented in this report are preliminary and upon associate professor of church music review may be revised to meet current compliance requirements. Humberto Muse DO 09/18/2024 7:19:40 AM This report has been signed electronically. Number of Addenda: 0 Note Initiated On: 09/18/2024 6:18 AM
--- NOTE | 2024-09-18 07:20 | OP.CCLET_ITS ---
09/18/2024 Eligio Carroll MD [address] [place] [address] [place] [address] Re : Colonoscopy procedure for [facility] Dear Dr. Carroll This procedure was performed on August. My impressions and recommendations are as follows: Impressions : - Two 1 to 2 mm polyps in the sigmoid colon and in the ascending colon, removed with a hot snare. Resected and retrieved. Clips were placed. Clip medical advisor: [employer]. - Non-bleeding internal hemorrhoids. Recommendations : - Repeat colonoscopy in 1 year for surveillance. - Continue present medications. My findings are described in the full procedure note, which is enclosed. If I can be of further assistance, please feel free to contact me at . Sincerely, Humberto Muse, 09/18/2024 7:19:40 AM This report has been signed electronically.
--- NOTE | 2024-09-18 07:26 | PCM.POST.ANE ---
Anesthesia: Postop Eval I Current Vital Signs Temperature: 97.2 F Pulse Rate: 74 Blood Pressure: 91/68 Respiratory Rate: 16 Pulse Ox: 95 Oxygen Delivery Method: Room Air Assessment Airway patent: Yes Spontaneous unlabored respirations: Yes Mental status: Asleep nausea: No Vomiting: No Anesthesia Complication: No Fluid Hydration Crystalloid volume administer (ml): 60 Total IV fluid infused: 60 Progress Note Anesthesia document: Postop Eval 1 completed: Yes
--- NOTE | 2024-09-18 07:46 | PCM.POSTANE2 ---
Anesthesia Postop Eval I Sum Postop Eval Completion status Anesthesia document: Postop Eval 1 completed: Yes Anesthesia Postop Eval I Summary Anesthesia Postop Eval I Summary: Anesthesia Postop Eval I: Assessment Summary Airway patent Yes 09/18/24 07:27 [email or web address] Spontaneous unlabored Yes 09/18/24 07:27 [email or web address] respirations Mental status Asleep 09/18/24 07:27 [email or web address] nausea No 09/18/24 07:27 [email or web address] Vomiting No 09/18/24 07:27 [email or web address] Anesthesia Postop Eval I: Fluid Summary Crystalloid volume administer 60 09/18/24 07:27 [email or web address] (ml) Colloids volume administered ( ml) Blood Product volume administered (ml) Total IV fluid infused 60 09/18/24 07:27 [email or web address] Anesthesia Postop Eval I: Summary Notes Anesthesia Complication No 09/18/24 07:27 [email or web address] Anesthesia Complication Comment: Post-operative progress note Anesthesia: Postop Eval II Evaluation Mental status: Awake and Calm Pain Level: 0 nausea: No Vomiting: No Complications Anesthesia Complication: No
== END 2024-09-18 08:02 | disposition home or self-care (01) ==
LOC: EN 05:22 → AC 05:22
PROVIDERS: PCP Internal Medicine; Referring Provider Internal Medicine; Visit Provider Internal Medicine Gastroenterology
PROC: 0DJD8ZZ Inspection of Lower Intestinal Tract, Via Natural or Artificial Opening Endoscopic (ICD-10-PCS; CPT 45378; principal; 2024-09-18 06:25)
DX: Z12.11 Encounter for screening for malignant neoplasm of colon (principal); E11.9 Type 2 diabetes mellitus without complications; K64.1 Second degree hemorrhoids; D12.5 Benign neoplasm of sigmoid colon; D12.0 Benign neoplasm of cecum; F17.200 Nicotine dependence, unspecified, uncomplicated
CPT/HCPCS: 45385; 88305; A4216; J2405

== ENCOUNTER → 2024-10-20 | Outpatient (CLI) | payer MEDICAID, SELFPAY ==
[2024-10-20 12:15] LABS: Anion Gap 2 (5-15); BUN 9 mg/dL (7-18); BUN/Creat Ratio 11.4 RATIO (10-20); Calcium,Total 8.9 mg/dL (8.5-10.1); Chloride 105 mmol/L (98-107); Creatinine, Serum 0.79 mg/dL (0.55-1.02); EST Glomerular Filtration Rate 83 mL/min (>60); Est Glom Filt Rate - Afr Amer 100 mL/min (>60); Glucose 125 mg/dL (74-106); Potassium 3.7 mmol/L (3.5-5.1); Sodium Level 137 mmol/L (136-145)
[2024-10-20 12:18] LABS: Vitamin D,25 Hydroxy 29.2 ng/mL
== END | disposition home or self-care (01) ==
LOC: BIMLAB 10:28
PROVIDERS: PCP Internal Medicine; Referring Provider Internal Medicine; Visit Provider Internal Medicine
DX: R73.03 Prediabetes (principal); E55.9 Vitamin D deficiency, unspecified
CPT/HCPCS: 36415; 80048; 82306; 83036

== ENCOUNTER → 2024-10-29 | Outpatient (CLI) | payer MEDICAID, SELFPAY ==
[2024-11-04 12:28] LABS: HPV APTIMA, High Risk Negative (Negative)
== END | disposition home or self-care (01) ==
LOC: LABSPEC 14:52
PROVIDERS: PCP Internal Medicine; Referring Provider Nurse Practitioner Family; Visit Provider Nurse Practitioner Family
DX: N89.8 Other specified noninflammatory disorders of vagina (principal); Z12.4 Encounter for screening for malignant neoplasm of cervix
CPT/HCPCS: 87070; 87077; 87186; 87205; 87624; 88175; G0145

== ENCOUNTER → 2024-11-05 | Outpatient (CLI) | payer MEDICAID, SELFPAY ==
--- NOTE | 2024-11-05 14:27 | NEURO_ITS ---
NCS and/or EMG Patient Report Ordering Doctor: Eligio Carroll DATE OF SERVICE: 11/05/24 Layla presents complaints of numbness and tingling in both hands. Electrodiagnostic findings: Median motor nerve demonstrates normal distal latency, amplitude and conduction velocity bilaterally. Normal ulnar motor resp onse bilaterally, including conduction across the elbow. Normal median and ulnar F-waves. Prolonged median sensory latency at the wrist bilaterally. Absent left median palmar response. Normal ulnar and radial sensory responses. Needle EMG testing was performed upper limbs. All muscles tested showed no evidence of denervation with normal motor unit action potentials. Electrodiagnostic impression: This is an abnormal study in the upper limbs 1. Electrodiagnostic findings suggestive of bilateral median mononeuropathy. This consistent with a mild bilateral carpal tunnel syndrome. 2. No electrodiagnostic evidence is noted for ulnar neuropathy, including cubital tunnel syndrome. 3. No electrodiagnostic evidence is noted for cervical radiculopathy. Multi Select Codes Neurology Neurology Interp Codes: 70045-49 Musc test done w/n test comp (interp) (2) and 56438-83 Nrv cndj test 13/> studies (interp)
== END | disposition home or self-care (01) ==
PROVIDERS: PCP Internal Medicine; Referring Provider Internal Medicine; Visit Provider Internal Medicine
DX: G56.03 Carpal tunnel syndrome, bilateral upper limbs (principal)
CPT/HCPCS: 95886; 95913